=== PATIENT | male | born 1995 | race Caucasian/White ===

== ENCOUNTER 2018-05-26 02:03 | Emergency (ER) | payer OTHER ==
[2018-05-26] MEDS ORDERED: NS 1,000 ML IV ONE (02:07)
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
[2018-05-26 02:21] LABS: PLATELET COUNT 274 10^3/uL (150-400)
[2018-05-26 02:29] LABS: INR 0.93 (0.83-1.16); PROTIME(PATIENT) 12.7 SEC (12.0-15.0)
[2018-05-26] MEDS ORDERED: IOPAMIDOL (ISOVUE-300) 100 ML BTL ONE (02:37)
[2018-05-26] MEDS ORDERED: IBUPROFEN 600 MG TAB PO ONE (04:16)
[2018-05-26 08:56] VITALS: BP 133/74
== END 2018-05-26 09:05 | disposition home or self-care (01) ==
DX: R07.89 Other chest pain (principal); M54.2 Cervicalgia; E86.9 Volume depletion, unspecified; F10.920 Alcohol use, unspecified with intoxication, uncomplicated; V49.49XA Driver injured in collision with other motor vehicles in traffic accident, initial encounter; Y92.410 Unspecified street and highway as the place of occurrence of the external cause; Y90.6 Blood alcohol level of 120-199 mg/100 ml
CPT/HCPCS: G0480; Q9967

== ENCOUNTER 2018-05-30 10:30 | Emergency (ER) | payer OTHER ==
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
[2018-05-30 12:58] VITALS: BP 128/77
== END 2018-05-30 12:55 | disposition home or self-care (01) ==
DX: K62.5 Hemorrhage of anus and rectum (principal)